=== PATIENT | male | born 1985 | race Hispanic/Latino ===

== ENCOUNTER 2017-10-09 21:15 | Emergency (ER) | payer BC ==
[2017-10-09 21:31] VITALS: TEMP 97.5
[2017-10-09] MEDS ORDERED: Sodium Chloride 0.9% 1,000 ML IV ONE (21:45)
[2017-10-09 22:51] LABS: BASO % 0.6 % (0.0-2.0); EOS # 0.1 K/uL (0.0-0.7); EOS % 1.4 % (0.0-4.0); HEMOGLOBIN 13.1 g/dL (12.0-18.0); LYMPH # 1.3 K/uL (1.0-4.3); LYMPH % 15.7 % (20.0-40.0); MEAN CELL VOLUME 86.6 fL (80.0-94.0); MEAN CORPUSCULAR HEMOGLOBIN 28.6 pg (27.0-31.0); MEAN CORPUSCULAR HGB CONC 33.1 g/dL (33.0-37.0); MONO # 0.5 K/uL (0.0-0.8); MONO % 6.3 % (0.0-10.0); NEUT # 6.2 K/uL (1.8-7.0); RBC 4.58 Mil/uL (4.40-5.90); RED CELL DISTRIBUTION WIDTH 13.5 % (11.5-14.5); WHITE BLOOD COUNT 8.2 K/uL (4.8-10.8)
[2017-10-09] MEDS ORDERED: Morphine 4 MG/ML VIAL IV STA ×2 (23:01→23:46)
[2017-10-09 23:07] LABS: ALB/GLOB RATIO 1.8 (1.0-2.1); ALBUMIN 4.7 g/dL (3.5-5.0); ALT/SGPT 26 U/L (21-72); AST/SGOT 27 U/L (17-59); BLOOD UREA NITROGEN 17 mg/dL (9-20); GFR AFRICAN-AMERICAN > 60; GFR NON-AFRICAN AMERICAN > 60; LIPASE 89 U/L (23-300)
[2017-10-09 23:10] LABS: SQUAMOUS EPITHIAL 1 /hpf (0-5); URINE BILIRUBIN NEGATIVE (NEGATIVE); URINE BLOOD 1+ (NEGATIVE); URINE CLARITY Clear (Clear); URINE COLOR Yellow (YELLOW); URINE GLUCOSE (UA) NORMAL (Normal); URINE LEUKOCYTE ESTERASE NEG Leu/uL (Negative); URINE PROTEIN NEGATIVE (NEGATIVE)
[2017-10-09] MEDS ORDERED: Sodium Chloride 0.9% 1,000 ML IV STA (23:45)
[2017-10-09] MEDS ORDERED: Morphine 4 MG/ML VIAL ONE (23:53)
--- NOTE | 2017-10-10 00:03 | C.PDOC ---
History Of Present Illness 32 year old male presents to the ER with a complaint of sudden onset of sharp right flank pain that began tonight, associated with nausea and vomiting. Denies Hx of kidney stones or hematuria. Chief Complaint (Nursing): Male Genitourinary History Per: Patient History/Exam Limitations: no limitations Onset/Duration Of Symptoms: Hrs Current Symptoms Are (Timing): Still Present Quality Of Discomfort: Sharp Associated Symptoms: Nausea, Vomiting, Back Pain (Right flank). denies: Other ( Hematuria) Alleviating Factors: None Recent travel outside of the [place]: No Past Medical History Reviewed: Historical Data, Nursing Documentation, Vital Signs Vital Signs: Last Vital Signs Temp 97.5 F L 10/10/17 00:13 Pulse 62 10/10/17 00:13 Resp 18 10/10/17 00:13 BP 118/67 10/10/17 00:13 Pulse Ox 100 10/10/17 00:13 Family History: States: Unknown Family Hx - Social History Hx Alcohol Use: Yes Hx Substance Use: No - Immunization History Hx Tetanus Toxoid Vaccination: Yes Hx Influenza Vaccination: No Hx Pneumococcal Vaccination: No Review Of Systems Constitutional: Negative for: Fever, Chills Cardiovascular: Negative for: Chest Pain, Palpitations Respiratory: Negative for: Cough, Shortness of Breath Gastrointestinal: Positive for: Nausea, Vomiting Genitourinary: Negative for: Hematuria Musculoskeletal: Positive for: Back Pain (Right flank) Physical Exam - Physical Exam Appears: Non-toxic Skin: Normal Color, Warm, Dry Head: Atraumatic, Normacephalic Eye(s): bilateral: Normal Inspection Oral Mucosa: Moist Chest: Symmetrical, No Tenderness Cardiovascular: Rhythm Regular Respiratory: Normal Breath Sounds, No Rales, No Rhonchi, No Wheezing Gastrointestinal/Abdominal: Soft, No Tenderness Back: CVA Tenderness (Mild right) Neurological/Psych: Oriented x3, Normal Speech ED Course And Treatment - Laboratory Results Result Diagrams: 10/09/17 22:45 10/09/17 22:45 O2 Sat by Pulse Oximetry: 98 (Room air ) Pulse Ox Interpretation: Normal Progress Note: CT abd/pel, blood work, and urinalysis ordered. Flomax, toradol, zofran, IV fluids, and morphine administered. Disposition - Disposition Referrals: Jess Gamble, [Non-Staff] - Disposition: HOME/ ROUTINE Disposition Time: 00:10 Condition: IMPROVED Additional Instructions: DENIS MOYER, thank you for letting us take care of you today. Your provider was Juan Armstrong DO. The emergency medical care you received today was directed at your acute symptoms. If you were prescribed any medication , please fill it and take as directed. It may take several days for your symptoms to resolve. Return to the Emergency Department if your symptoms worsen , do not improve, or if you have any other problems. Please contact your doctor or call one of the physicians/clinics you have been referred to that are listed on the Patient Visit Information form that is included in your discharge packet. Bring any paperwork you were given at discharge with you along with any medications you are taking to your follow up visit. Our treatment cannot replace ongoing medical care by a primary care provider outside of the emergency department. Thank you for allowing the [facility] team to be part of your care today. Follow up with your primary care doctor in 2-3 days for re-evaluation and further management. Prescriptions: Ondansetron ODT [Zofran ODT] 8 mg PO Q8 PRN #20 odt PRN Reason: Nausea/Vomiting oxyCODONE/Acetaminophen [Percocet 5/325 mg Tab] 1 ea PO Q6 PRN #15 tab PRN Reason: Pain, Severe (8-10) Tamsulosin [Flomax] 0.4 mg PO DAILY #7 cap Instructions: Kidney Stones (DC), How to Strain Your Urine Forms: [employer] (Nepalese) - Clinical Impression Clinical Impression: Kidney stone on right side - Scribe Statement The provider has reviewed the documentation as recorded by the Scribcorbin Smith All medical record entries made by the Scribe were at my direction and personally dictated by me. I have reviewed the chart and agree that the record accurately reflects my personal performance of the history, physical exam, medical decision making, and the department course for this patient. I have also personally directed, reviewed, and agree with the discharge instructions and disposition.
[2017-10-10 00:14] VITALS: BP 118/67; PULSE 62; RESP 18
[2017-10-10 00:42] VITALS: O2SAT 98
--- NOTE | 2017-10-10 16:09 | CT ---
PROCEDURE: CT Abdomen and Pelvis . HISTORY: Right flank pain COMPARISON: None. TECHNIQUE: Contiguous axial images of the abdomen and pelvis. Coronal and Sagittal reformats generated. Radiation dose: Total exam DLP = 414.92 mGy-cm. This CT exam was performed using one or more of the following dose reduction techniques: Automated exposure control, adjustment of the mA and/or kV according to patient size, and/or use of iterative reconstruction technique. FINDINGS: LOWER THORAX: Unremarkable. LIVER: Unremarkable. No gross lesion or ductal dilatation. GALLBLADDER AND BILE DUCTS: Unremarkable. PANCREAS: Unremarkable. No mass. No ductal dilatation. SPLEEN: Spleen is upper limits of normal/borderline enlarged measuring over 12 cm in CC dimension. ADRENALS: Unremarkable. KIDNEYS AND URETERS: Apparent 3.225 mm calculus right UVJ region with mild right-sided hydronephrosis. Clinical correlation with urinalysis recommended. BLADDER: Grossly unremarkable. REPRODUCTIVE: Unremarkable. APPENDIX: . The appendix is not seen with certainty on this exam. No obvious inflammatory changes right lower quadrant of the abdomen. BOWEL: Evaluation of the bowel is somewhat limited due to the lack of oral contrast material. Stomach is partially distended with semi-solid food debris/ liquid and air. Large amount of stool seen within the cecum at ascending and transverse colon suggesting mild fecal retention/constipation. PERITONEUM: Unremarkable. No fluid collection. No free air.Small fat containing umbilical hernia. LYMPH NODES: Unremarkable. No enlarged lymph nodes. VASCULATURE: Unremarkable. No aortic aneurysm. BONES: Mild degenerative spondylosis L5-S1 level. No acute fractures. OTHER FINDINGS: None. IMPRESSION: Findings consistent with 2 mm calculus right UVJ region with mild right-sided hydronephrosis. Correlation with urinalysis. Appendix not seen with certainty on this study however no obvious inflammatory changes right lower quadrant of the abdomen. Correlation with history physical exam and laboratory values as the possibility of an early acute appendicitis cannot be excluded given the findings of nonvisualization.
== END 2017-10-10 00:30 | disposition home or self-care (01) ==
LOC: C.ER 21:15
DX: N20.0 Calculus of kidney (principal)
CPT/HCPCS: 74176; 80053; 81001; 83690; 85025; 87086; 96361; 96374; 96375; 96376; 99285; J1885; J2270; J2405; J7030